=== PATIENT | male | born 1945 | race Caucasian/White ===

== ENCOUNTER 2019-02-19 03:06 | Emergency (ER) | payer MEDICARE ==
[~2019-02-19] VITALS: Ht 180.3 cm; Wt 102.0 kg
[2019-02-19 04:14] VITALS: BP 111/69
== END 2019-02-19 04:56 | disposition home or self-care (01) ==
LOC: ED 04:48
DX: N40.1 Benign prostatic hyperplasia with lower urinary tract symptoms (principal); R33.8 Other retention of urine
CPT/HCPCS: 51702; 81001; 99284